=== PATIENT | male | born 1950 ===

== ENCOUNTER 2022-02-18 02:39 | Inpatient (IN) ==
[2022-02-18 04:20] LABS: Basophils % 0.1 % (0.0-0.8); Eosinophils # 0.2 10*3/uL (0.0-0.87); Eosinophils % 0.9 % (0.00-10.9); Hematocrit 24.8 VOL% (42.0-52.0); Hemoglobin 7.5 GM/DL (14.0-18.0); Immature Granulocytes % 0.7 %; Immature Granulocytes Absolute 0.14 #; Lymphocytes # 1.1 10*3/uL (1.4-4.0); Lymphocytes % 5.6 % (21.2-54.2); Mean Corpuscular HGB Conc 30.2 GM/DL (32-36); Mean Corpuscular Volume 80.8 FL (87-102); Mean Platelet Volume 10.9 FL (9.6-12.0); Monocytes # 0.9 10*3/uL (0.11-0.8); Monocytes % 4.7 % (1.7-12.7); Platelet Count 258 T/CUMM (130-400); Red Blood Count 3.07 MC/CUMM (3.8-5.5); Red Cell Distribution Width 14.6 % (9.3-17.3); White Blood Count 19.1 T/CUMM (4-12)
[2022-02-18 04:28] LABS: RBC,Urine 22 /HPF (0-4)
[2022-02-18 04:30] LABS: Bilirubin,Urine Negative (Negative); Blood, Urine Moderate mg/dL (Negative); Glucose,Urine (UA) Negative (Negative); Ketones,Urine Negative (Negative); Nitrite,Urine Positive (Negative); Protein,Urine 100 mg/dL (Negative); Urine Appearance CLOUDY (Clear); Urine Color Yellow (Yellow); Urine Urobilinogen 0.2 eU/dL (<2.0); Urine pH 7.5 (4.5-8.0)
[2022-02-18 04:41] LABS: Alanine Aminotransferase 10 U/L (16-61); Albumin 3.2 G/DL (3.4-5.0); Alkaline Phosphatase 63 U/L (45-117); Aspartate Amino Transferase 8 U/L (0-37); Bilirubin,Total < 0.39 MG/DL (0.20-1.00); Blood Urea Nitrogen 77 MG/DL (7-18); Calcium 6.5 MG/DL (8.5-10.1); Carbon Dioxide 15 MMOL/L (21-32); Chloride 119 MMOL/L (98-107); Glucose 124 MG/DL (74-106); Osmolality,Calculated 309.8 MOS/KG (273-304); Potassium 4.6 MMOL/L (3.5-5.1); Sodium 144 MMOL/L (136-145); Total Protein 7.1 G/DL (6.4-8.2)
[2022-02-18] MEDS ORDERED: LEVOFLOXACIN INJ 500 MG/100 ML PREMIX IV ONE (04:42)
[2022-02-18] MEDS ORDERED: ALBUTEROL 2.5 MG/3 ML NEB RESP TX PRN (08:42)
[2022-02-18] MEDS ORDERED: DOCUSATE SODIUM 100 MG CAPSULE PO PRN (08:42)
[2022-02-18] MEDS ORDERED: ONDANSETRON 4 MG/2 ML VIAL IV PRN (08:42)
[2022-02-18] MEDS ORDERED: hydrALAZINE 20 MG/1 ML VIAL IV PRN (08:42)
[2022-02-18] MEDS ORDERED: ACETAMINOPHEN 325 MG TABLET PO PRN (08:42)
[2022-02-18] MEDS ORDERED: SODIUM CHLORIDE 0.9% 1,000 ML IV PRN ×2 (09:06→15:48)
[2022-02-18 09:39] LABS: % Iron Saturation 14.5 % (18-50); Ferritin 308.8 ng/mL (26-388)
[2022-02-18] MEDS: PANTOPRAZOLE 40 MG TABLET PO SCH (10:32)
[2022-02-18 11:36] LABS: Basophils % 0.1 % (0.0-0.8); Eosinophils # 0.1 10*3/uL (0.0-0.87); Eosinophils % 0.3 % (0.00-10.9); Hemoglobin 7.1 GM/DL (14.0-18.0); Immature Granulocytes % 0.7 %; Immature Granulocytes Absolute 0.13 #; Lymphocytes # 1.3 10*3/uL (1.4-4.0); Mean Corpuscular HGB Conc 30.9 GM/DL (32-36); Mean Corpuscular Volume 79.9 FL (87-102); Mean Platelet Volume 10.9 FL (9.6-12.0); Monocytes # 1.1 10*3/uL (0.11-0.8); Monocytes % 5.7 % (1.7-12.7); Neutrophils % 86.2 % (38.7-73.9); Platelet Count 248 T/CUMM (130-400); Red Blood Count 2.88 MC/CUMM (3.8-5.5); Red Cell Distribution Width 14.5 % (9.3-17.3); White Blood Count 18.5 T/CUMM (4-12)
[2022-02-18 12:42] LABS: Sedimentation Rate-Westergren 79 MM/HR (0-20)
[2022-02-18] MEDS: SODIUM BICARB INJ 50 MEQ in DEXTROSE 5% NACL 0.45% 1,000 ML IV SCH ×2 (13:11→21:07)
[2022-02-18] MEDS: DUTASTERIDE 0.5 MG CAPSULE PO SCH (15:55)
[2022-02-18 20:10] LABS: Folate 5.26 NG/ML (5.38-24.0); Vitamin B12 411 PG/ML (211-911)
[2022-02-18] MEDS: TAMSULOSIN 0.4 MG CAPSULE PO SCH (21:05)
[2022-02-19] MEDS: SODIUM BICARB INJ 50 MEQ in DEXTROSE 5% NACL 0.45% 1,000 ML IV SCH ×3 (01:15→15:42)
[2022-02-19 04:35] LABS: Arterial Base Excess iSTAT -11 MMOL/L (-2.5-2.5); Arterial Bicarbonate iSTAT 14.6 MMOL/L (20-26); Arterial O2 Saturation iSTAT 95 % (95-100); Arterial PCO2 iSTAT 30 MM HG (35-48); Arterial PO2 iSTAT 84 MM HG (80-95); Arterial Total CO2 iSTAT 16 MMO/L (23-27); Arterial pH iSTAT 7.294 (7.35-7.45)
[2022-02-19 05:45] LABS: Basophils % 0.2 % (0.0-0.8); Eosinophils # 0.3 10*3/uL (0.0-0.87); Eosinophils % 2.3 % (0.00-10.9); Hematocrit 22.8 VOL% (42.0-52.0); Hemoglobin 7.2 GM/DL (14.0-18.0); Immature Granulocytes % 0.6 %; Immature Granulocytes Absolute 0.08 #; Lymphocytes # 1.8 10*3/uL (1.4-4.0); Mean Corpuscular HGB Conc 31.6 GM/DL (32-36); Mean Corpuscular Volume 80.9 FL (87-102); Mean Platelet Volume 11.2 FL (9.6-12.0); Monocytes # 0.9 10*3/uL (0.11-0.8); Monocytes % 7.1 % (1.7-12.7); Neutrophils % 75.8 % (38.7-73.9); Platelet Count 234 T/CUMM (130-400); Red Blood Count 2.82 MC/CUMM (3.8-5.5); White Blood Count 12.8 T/CUMM (4-12)
[2022-02-19 06:28] LABS: Calcium 6.4 MG/DL (8.5-10.1); Potassium 4.4 MMOL/L (3.5-5.1); Risk Ratio 2.69; Thyroid Stimulating Hormone 2.13 uIU/ml (0.358-3.74); VLDL Cholesterol 8.8 MG/DL
[2022-02-19 06:40] LABS: Phosphorous 4.6 MG/DL (2.5-4.9); Total Protein 6.1 G/DL (6.4-8.2); Uric Acid 8.9 MG/DL (3.5-7.2)
[2022-02-19] MEDS: DUTASTERIDE 0.5 MG CAPSULE PO SCH (10:03)
[2022-02-19] MEDS: PANTOPRAZOLE 40 MG TABLET PO SCH (10:03)
[2022-02-19 10:10] LABS: Protein/Creatinine Ratio,Urine 0.8 RATIO
[2022-02-19] MEDS ORDERED: SODIUM CHLORIDE 0.9% 1,000 ML IV PRN (12:58)
[2022-02-19 19:17] LABS: Hematocrit 29.8 VOL% (42.0-52.0)
[2022-02-19 19:19] LABS: Hemoglobin 9.2 GM/DL (14.0-18.0)
[2022-02-19] MEDS: TAMSULOSIN 0.4 MG CAPSULE PO SCH (20:48)
[2022-02-20] MEDS: SODIUM BICARB INJ 50 MEQ in DEXTROSE 5% NACL 0.45% 1,000 ML IV SCH ×2 (03:54→16:04)
[2022-02-20 05:37] LABS: Basophils % 0.1 % (0.0-0.8); Eosinophils # 0.4 10*3/uL (0.0-0.87); Eosinophils % 2.8 % (0.00-10.9); Hematocrit 26.9 VOL% (42.0-52.0); Hemoglobin 8.5 GM/DL (14.0-18.0); Immature Granulocytes % 0.5 %; Immature Granulocytes Absolute 0.07 #; Lymphocytes # 1.6 10*3/uL (1.4-4.0); Lymphocytes % 11.6 % (21.2-54.2); Mean Corpuscular HGB Conc 31.6 GM/DL (32-36); Mean Platelet Volume 10.9 FL (9.6-12.0); Monocytes # 1.1 10*3/uL (0.11-0.8); Monocytes % 8.2 % (1.7-12.7); Neutrophils % 76.8 % (38.7-73.9); Platelet Count 236 T/CUMM (130-400); Red Blood Count 3.28 MC/CUMM (3.8-5.5); Red Cell Distribution Width 15.4 % (9.3-17.3); White Blood Count 13.9 T/CUMM (4-12)
[2022-02-20 06:02] LABS: Calcium 6.1 MG/DL (8.5-10.1); Potassium 4.3 MMOL/L (3.5-5.1)
[2022-02-20] MEDS: LEVOFLOXACIN INJ 500 MG/100 ML PREMIX IV SCH (08:28)
[2022-02-20] MEDS: DUTASTERIDE 0.5 MG CAPSULE PO SCH (08:28)
[2022-02-20] MEDS: PANTOPRAZOLE 40 MG TABLET PO SCH (08:28)
[2022-02-20] MEDS: BACITRACIN OINT 0.9 GM PACK TOP SCH ×2 (09:07→20:39)
[2022-02-20] MEDS: FERRIC GLUCONATE COMPLEX 125 MG in SODIUM CHLORIDE 0.9% 100 ML IV SCH (09:09)
[2022-02-20] MEDS: SODIUM BICARBONATE 650 MG TABLET PO SCH ×2 (09:09→20:39)
[2022-02-20] MEDS: carvediloL 12.5 MG TABLET PO SCH ×2 (09:10→16:04)
[2022-02-20] MEDS ORDERED: EPOETIN ALFA-EPBX 10,000 UNIT/ML VIAL SUBCUT ONE (11:00)
[2022-02-20] MEDS: TAMSULOSIN 0.4 MG CAPSULE PO SCH (20:39)
[2022-02-21] MEDS: SODIUM BICARB INJ 50 MEQ in DEXTROSE 5% NACL 0.45% 1,000 ML IV SCH ×2 (05:12→18:30)
[2022-02-21 07:10] LABS: Basophils % 0.2 % (0.0-0.8); Eosinophils # 0.4 10*3/uL (0.0-0.87); Eosinophils % 3.1 % (0.00-10.9); Hematocrit 23.5 VOL% (42.0-52.0); Hemoglobin 7.6 GM/DL (14.0-18.0); Immature Granulocytes % 0.5 %; Immature Granulocytes Absolute 0.06 #; Lymphocytes # 1.8 10*3/uL (1.4-4.0); Lymphocytes % 14.1 % (21.2-54.2); Mean Corpuscular HGB Conc 32.3 GM/DL (32-36); Mean Corpuscular Volume 81.6 FL (87-102); Mean Platelet Volume 11.3 FL (9.6-12.0); Monocytes # 1.1 10*3/uL (0.11-0.8); Monocytes % 8.6 % (1.7-12.7); Neutrophils % 73.5 % (38.7-73.9); Platelet Count 216 T/CUMM (130-400); Red Blood Count 2.88 MC/CUMM (3.8-5.5); Red Cell Distribution Width 15.5 % (9.3-17.3)
[2022-02-21 07:42] LABS: Calcium 5.9 MG/DL (8.5-10.1); Osmolality,Calculated 305.8 MOS/KG (273-304); Potassium 4.2 MMOL/L (3.5-5.1)
[2022-02-21] MEDS: hydrALAZINE 25 MG TABLET PO SCH ×2 (08:28→20:25)
[2022-02-21] MEDS: carvediloL 12.5 MG TABLET PO SCH ×2 (08:28→16:30)
[2022-02-21] MEDS ORDERED: calcitrioL 0.25 MCG CAPSULE PO SCH (09:00)
[2022-02-21 09:30] LABS: Random Urine Protein (Bench) 50 MG/DL (<11.9)
[2022-02-21 09:30] LABS: Immunoglobulin A (Chem) 169 MG/DL (70-400); Immunoglobulin G (Chem) 1190 MG/DL (700-1600); Immunoglobulin M (Chem) 105 MG/DL (40-230); Total Protein (Chem) 6.1 G/DL (6.4-8.3)
[2022-02-21 10:36] LABS: Hemoglobin A1 (Alkaline) 64.8 % (96.5-98.5); Hemoglobin A2 (Alkaline) 3.1 % (1.5-3.5); Hemoglobin S (Alkaline) 32.1 %
[2022-02-21 11:11] LABS: Albumin (SPE) 3.5 G/DL (3.2-5.3); Albumin (SPE) Rel % 57.6 %; Alpha 1 (SPE) 0.1 G/DL (0.1-0.4); Alpha 1 (SPE) Rel % 2.2 %; Alpha 2 (SPE) 0.6 G/DL (0.4-1.0); Alpha 2 (SPE) Rel % 10.3 %; Beta (SPE) 0.5 G/DL (0.5-1.1); Beta (SPE) Rel % 7.4 %; Gamma (SPE) 1.4 G/DL (0.7-1.7); Gamma (SPE) Rel % 22.5 %
[2022-02-21] MEDS: FERRIC GLUCONATE COMPLEX 125 MG in SODIUM CHLORIDE 0.9% 100 ML IV SCH (12:06)
[2022-02-21] MEDS: PANTOPRAZOLE 40 MG TABLET PO SCH (14:57)
[2022-02-21] MEDS: SODIUM BICARBONATE 650 MG TABLET PO SCH ×2 (14:57→20:25)
[2022-02-21] MEDS: DUTASTERIDE 0.5 MG CAPSULE PO SCH (14:57)
[2022-02-21] MEDS: BACITRACIN OINT 0.9 GM PACK TOP SCH ×2 (14:57→20:25)
[2022-02-21] MEDS: TAMSULOSIN 0.4 MG CAPSULE PO SCH (20:25)
[2022-02-22] MEDS: SODIUM BICARB INJ 50 MEQ in DEXTROSE 5% NACL 0.45% 1,000 ML IV SCH ×4 (01:16→21:16)
[2022-02-22 05:23] LABS: Basophils % 0.2 % (0.0-0.8); Eosinophils # 0.5 10*3/uL (0.0-0.87); Eosinophils % 3.4 % (0.00-10.9); Hemoglobin 7.8 GM/DL (14.0-18.0); Immature Granulocytes % 0.8 %; Lymphocytes # 1.8 10*3/uL (1.4-4.0); Lymphocytes % 13.9 % (21.2-54.2); Mean Corpuscular HGB Conc 32.5 GM/DL (32-36); Mean Corpuscular Volume 81.1 FL (87-102); Mean Platelet Volume 10.7 FL (9.6-12.0); Monocytes # 1.1 10*3/uL (0.11-0.8); Monocytes % 8.3 % (1.7-12.7); Neutrophils % 73.4 % (38.7-73.9); Platelet Count 214 T/CUMM (130-400); Red Blood Count 2.96 MC/CUMM (3.8-5.5); Red Cell Distribution Width 15.4 % (9.3-17.3); White Blood Count 13.1 T/CUMM (4-12)
[2022-02-22 05:40] LABS: Potassium 4.2 MMOL/L (3.5-5.1)
[2022-02-22 05:42] LABS: Calcium 5.8 MG/DL (8.5-10.1)
[2022-02-22] MEDS ORDERED: CALCIUM GLUCONATE RIDER 2,000 MG/100 ML PREMIX IV ONE (08:30)
[2022-02-22] MEDS: DUTASTERIDE 0.5 MG CAPSULE PO SCH (09:41)
[2022-02-22] MEDS: BACITRACIN OINT 0.9 GM PACK TOP SCH ×2 (09:41→21:15)
[2022-02-22] MEDS: carvediloL 12.5 MG TABLET PO SCH ×2 (09:42→17:23)
[2022-02-22] MEDS: SODIUM BICARBONATE 650 MG TABLET PO SCH ×2 (09:42→21:15)
[2022-02-22] MEDS: PANTOPRAZOLE 40 MG TABLET PO SCH (09:43)
[2022-02-22] MEDS: LEVOFLOXACIN INJ 500 MG/100 ML PREMIX IV SCH (10:25)
[2022-02-22] MEDS: FERRIC GLUCONATE COMPLEX 125 MG in SODIUM CHLORIDE 0.9% 100 ML IV SCH (11:28)
[2022-02-22] MEDS ORDERED: MAGNESIUM SULF RIDER 4 GM/100 ML PREMIX IV ONE (12:00)
[2022-02-22] MEDS ORDERED: ERGOCALCIFEROL 50,000 UNIT CAPSULE PO SCH (12:00)
[2022-02-22 13:22] LABS: Kappa Free Light Chain 14.4 mg/dL; Lambda Free Light Chain 10.1 mg/dL
[2022-02-22 19:43] LABS: Antinuclear Ab, S 0.2 U
[2022-02-22] MEDS: TAMSULOSIN 0.4 MG CAPSULE PO SCH (21:15)
[2022-02-23 04:47] LABS: Basophils % 0.2 % (0.0-0.8); Eosinophils # 0.4 10*3/uL (0.0-0.87); Hematocrit 23.8 VOL% (42.0-52.0); Hemoglobin 7.6 GM/DL (14.0-18.0); Immature Granulocytes Absolute 0.13 #; Lymphocytes # 1.5 10*3/uL (1.4-4.0); Lymphocytes % 11.4 % (21.2-54.2); Mean Corpuscular HGB Conc 31.9 GM/DL (32-36); Mean Corpuscular Volume 82.9 FL (87-102); Mean Platelet Volume 10.2 FL (9.6-12.0); Monocytes # 1.2 10*3/uL (0.11-0.8); Monocytes % 8.8 % (1.7-12.7); Neutrophils % 75.6 % (38.7-73.9); Platelet Count 208 T/CUMM (130-400); Red Blood Count 2.87 MC/CUMM (3.8-5.5); Red Cell Distribution Width 15.6 % (9.3-17.3); White Blood Count 13.3 T/CUMM (4-12)
[2022-02-23 05:16] LABS: Alanine Aminotransferase < 9 U/L (16-61); Albumin 2.5 G/DL (3.4-5.0); Alkaline Phosphatase 47 U/L (45-117); Aspartate Amino Transferase 9 U/L (0-37); Bilirubin,Total < 0.39 MG/DL (0.20-1.00); Blood Urea Nitrogen 64 MG/DL (7-18); Calcium 6.2 MG/DL (8.5-10.1); Carbon Dioxide 24 MMOL/L (21-32); Chloride 111 MMOL/L (98-107); Glucose 104 MG/DL (74-106); Potassium 4.2 MMOL/L (3.5-5.1); Sodium 143 MMOL/L (136-145); Total Protein 5.8 G/DL (6.4-8.2)
[2022-02-23] MEDS: carvediloL 12.5 MG TABLET PO SCH ×2 (08:10→16:36)
[2022-02-23] MEDS: DUTASTERIDE 0.5 MG CAPSULE PO SCH (08:10)
[2022-02-23] MEDS: calcitrioL 0.25 MCG CAPSULE PO SCH (08:12)
[2022-02-23] MEDS: BACITRACIN OINT 0.9 GM PACK TOP SCH ×2 (08:12→21:13)
[2022-02-23] MEDS: PANTOPRAZOLE 40 MG TABLET PO SCH (08:12)
[2022-02-23] MEDS: SODIUM BICARBONATE 650 MG TABLET PO SCH ×2 (08:12→21:13)
[2022-02-23] MEDS: CEFUROXIME 500 MG TABLET PO SCH ×2 (08:32→21:13)
[2022-02-23] MEDS: TAMSULOSIN 0.4 MG CAPSULE PO SCH (21:13)
[2022-02-24 06:05] LABS: Basophils % 0.2 % (0.0-0.8); Eosinophils # 0.4 10*3/uL (0.0-0.87); Hematocrit 24.6 VOL% (42.0-52.0); Hemoglobin 7.9 GM/DL (14.0-18.0); Immature Granulocytes % 1.1 %; Immature Granulocytes Absolute 0.14 #; Lymphocytes # 1.9 10*3/uL (1.4-4.0); Lymphocytes % 14.4 % (21.2-54.2); Mean Corpuscular HGB Conc 32.1 GM/DL (32-36); Mean Corpuscular Volume 82.6 FL (87-102); Mean Platelet Volume 11.1 FL (9.6-12.0); Monocytes # 1.1 10*3/uL (0.11-0.8); Monocytes % 8.6 % (1.7-12.7); Neutrophils % 72.7 % (38.7-73.9); Platelet Count 236 T/CUMM (130-400); Red Blood Count 2.98 MC/CUMM (3.8-5.5); Red Cell Distribution Width 15.7 % (9.3-17.3)
[2022-02-24 06:40] LABS: Alanine Aminotransferase < 6 U/L (16-61); Albumin 2.6 G/DL (3.4-5.0); Alkaline Phosphatase 47 U/L (45-117); Aspartate Amino Transferase 9 U/L (0-37); Bilirubin,Total < 0.39 MG/DL (0.20-1.00); Blood Urea Nitrogen 69 MG/DL (7-18); Calcium 6.4 MG/DL (8.5-10.1); Carbon Dioxide 23 MMOL/L (21-32); Chloride 109 MMOL/L (98-107); Glucose 85 MG/DL (74-106); Osmolality,Calculated 299.3 MOS/KG (273-304); Potassium 4.3 MMOL/L (3.5-5.1); Sodium 141 MMOL/L (136-145); Total Protein 5.9 G/DL (6.4-8.2)
[2022-02-24] MEDS ORDERED: CEFUROXIME 500 MG TABLET PO SCH (09:00)
[2022-02-24] MEDS: DUTASTERIDE 0.5 MG CAPSULE PO SCH (09:36)
[2022-02-24] MEDS: SODIUM BICARBONATE 650 MG TABLET PO SCH (09:36)
[2022-02-24] MEDS: BACITRACIN OINT 0.9 GM PACK TOP SCH (09:36)
[2022-02-24] MEDS: carvediloL 12.5 MG TABLET PO SCH (09:36)
[2022-02-24] MEDS: PANTOPRAZOLE 40 MG TABLET PO SCH (09:36)
[2022-02-24] MEDS: calcitrioL 0.25 MCG CAPSULE PO SCH (09:36)
[2022-02-24 11:11] VITALS: BP 126/60
== END 2022-02-24 12:05 | disposition home or self-care (01) | DRG 699 ==
LOC: EDBD → EDUNIT# → N.ED 02:39 → N.EDINP 08:42 → SUATTDRO 08:42 → N.EDINP 10:40 → N.3E 12:06
PROVIDERS: ADMIT Internal Medicine; ATTEND Family Medicine

== ENCOUNTER 2022-03-04 22:09 | Observation (INO) ==
[2022-03-04 23:07] LABS: Basophils % 0.2 % (0.0-0.8); Eosinophils # 0.3 10*3/uL (0.0-0.87); Eosinophils % 2.1 % (0.00-10.9); Hematocrit 25.6 VOL% (42.0-52.0); Hemoglobin 7.9 GM/DL (14.0-18.0); Immature Granulocytes % 0.4 %; Immature Granulocytes Absolute 0.07 #; Lymphocytes # 1.5 10*3/uL (1.4-4.0); Lymphocytes % 9.3 % (21.2-54.2); Mean Corpuscular HGB Conc 30.9 GM/DL (32-36); Mean Corpuscular Volume 82.8 FL (87-102); Mean Platelet Volume 10.7 FL (9.6-12.0); Monocytes # 1.2 10*3/uL (0.11-0.8); Monocytes % 7.6 % (1.7-12.7); Neutrophils % 80.4 % (38.7-73.9); Platelet Count 267 T/CUMM (130-400); Red Blood Count 3.09 MC/CUMM (3.8-5.5); Red Cell Distribution Width 15.4 % (9.3-17.3); White Blood Count 15.7 T/CUMM (4-12)
[2022-03-04 23:22] LABS: RBC,Urine 90373 /HPF (0-4)
[2022-03-04 23:30] LABS: Bilirubin,Urine Negative (Negative); Blood, Urine Large mg/dL (Negative); Glucose,Urine (UA) Negative (Negative); Ketones,Urine Negative (Negative); Nitrite,Urine Negative (Negative); Protein,Urine >=300 mg/dL (Negative); Urine Appearance Clear (Clear); Urine Color Red (Yellow); Urine Urobilinogen 0.2 eU/dL (<2.0)
[2022-03-04 23:31] LABS: Calcium 7.2 MG/DL (8.5-10.1); Osmolality,Calculated 302.3 MOS/KG (273-304); Potassium 4.8 MMOL/L (3.5-5.1)
[2022-03-05] MEDS ORDERED: cefTRIAXone 1,000 MG in SODIUM CHLORIDE 0.9% 100 ML IV STA (00:46)
[2022-03-05] MEDS ORDERED: hydrALAZINE 20 MG/1 ML VIAL IV PRN (01:53)
[2022-03-05] MEDS ORDERED: ACETAMINOPHEN 325 MG TABLET PO PRN (01:53)
[2022-03-05] MEDS ORDERED: MORPHINE 2 MG/1 ML SYRINGE IV PRN (01:53)
[2022-03-05] MEDS ORDERED: ONDANSETRON 4 MG/2 ML VIAL IV PRN (01:53)
[2022-03-05 06:09] LABS: Basophils % 0.1 % (0.0-0.8); Eosinophils # 0.3 10*3/uL (0.0-0.87); Hematocrit 24.5 VOL% (42.0-52.0); Hemoglobin 7.5 GM/DL (14.0-18.0); Immature Granulocytes % 0.6 %; Immature Granulocytes Absolute 0.08 #; Lymphocytes # 1.3 10*3/uL (1.4-4.0); Lymphocytes % 9.3 % (21.2-54.2); Mean Corpuscular HGB Conc 30.6 GM/DL (32-36); Mean Corpuscular Volume 83.1 FL (87-102); Mean Platelet Volume 11.1 FL (9.6-12.0); Monocytes # 1.1 10*3/uL (0.11-0.8); Monocytes % 7.4 % (1.7-12.7); Neutrophils % 80.6 % (38.7-73.9); Platelet Count 250 T/CUMM (130-400); Red Blood Count 2.95 MC/CUMM (3.8-5.5); Red Cell Distribution Width 15.3 % (9.3-17.3); White Blood Count 14.2 T/CUMM (4-12)
[2022-03-05 06:24] LABS: Potassium 5.1 MMOL/L (3.5-5.1)
[2022-03-05] MEDS: PANTOPRAZOLE 40 MG TABLET PO SCH (09:13)
[2022-03-05] MEDS: calcitrioL 0.25 MCG CAPSULE PO SCH (09:13)
[2022-03-05] MEDS: carvediloL 12.5 MG TABLET PO SCH ×2 (09:13→22:40)
[2022-03-05 09:16] LABS: % Iron Saturation 10.2 % (18-50)
[2022-03-05] MEDS: DUTASTERIDE 0.5 MG CAPSULE PO SCH (09:19)
[2022-03-05 09:27] LABS: Folate 5.22 NG/ML (5.38-24.0)
[2022-03-05] MEDS ORDERED: FERRIC GLUCONATE COMPLEX 125 MG in SODIUM CHLORIDE 0.9% 100 ML IV ONE (11:00)
[2022-03-05] MEDS: TAMSULOSIN 0.4 MG CAPSULE PO SCH (22:40)
[2022-03-06 04:53] LABS: Basophils % 0.1 % (0.0-0.8); Eosinophils # 0.4 10*3/uL (0.0-0.87); Hematocrit 20.5 VOL% (42.0-52.0); Immature Granulocytes % 0.4 %; Immature Granulocytes Absolute 0.06 #; Lymphocytes # 1.7 10*3/uL (1.4-4.0); Mean Corpuscular HGB Conc 31.7 GM/DL (32-36); Mean Platelet Volume 10.8 FL (9.6-12.0); Monocytes # 1.1 10*3/uL (0.11-0.8); Monocytes % 8.2 % (1.7-12.7); Neutrophils % 76.3 % (38.7-73.9); Platelet Count 212 T/CUMM (130-400); Red Blood Count 2.47 MC/CUMM (3.8-5.5); White Blood Count 13.7 T/CUMM (4-12)
[2022-03-06 04:54] LABS: Hemoglobin 6.5 GM/DL (14.0-18.0)
[2022-03-06 05:03] LABS: Calcium 6.4 MG/DL (8.5-10.1); Potassium 5.2 MMOL/L (3.5-5.1)
[2022-03-06] MEDS: cefTRIAXone 1,000 MG in SODIUM CHLORIDE 0.9% 100 ML IV SCH (06:17)
[2022-03-06] MEDS ORDERED: SODIUM CHLORIDE 0.9% 1,000 ML IV PRN (07:48)
[2022-03-06] MEDS ORDERED: SODIUM POLYSTYRENE SULFATE 15 GM/60 ML BOTTLE PO ONE (07:50)
[2022-03-06] MEDS: calcitrioL 0.25 MCG CAPSULE PO SCH (09:55)
[2022-03-06] MEDS: FOLIC ACID 1 MG TABLET PO SCH (09:55)
[2022-03-06] MEDS: DUTASTERIDE 0.5 MG CAPSULE PO SCH (09:55)
[2022-03-06] MEDS: FERROUS SULFATE 325 MG TABLET PO SCH (09:55)
[2022-03-06] MEDS: PANTOPRAZOLE 40 MG TABLET PO SCH (09:55)
[2022-03-06] MEDS: carvediloL 12.5 MG TABLET PO SCH ×2 (09:55→22:33)
[2022-03-06] MEDS: SODIUM CHLORIDE 0.45% 1,000 ML IV SCH (09:56)
[2022-03-06] MEDS: TAMSULOSIN 0.4 MG CAPSULE PO SCH (22:33)
[2022-03-07] MEDS: SODIUM CHLORIDE 0.45% 1,000 ML IV SCH ×2 (04:57)
[2022-03-07] MEDS: cefTRIAXone 1,000 MG in SODIUM CHLORIDE 0.9% 100 ML IV SCH (04:59)
[2022-03-07 06:15] LABS: Alanine Aminotransferase < 6 U/L (16-61); Albumin 2.5 G/DL (3.4-5.0); Alkaline Phosphatase 52 U/L (45-117); Aspartate Amino Transferase 5 U/L (0-37); Bilirubin,Total < 0.39 MG/DL (0.20-1.00); Blood Urea Nitrogen 71 MG/DL (7-18); Calcium 6.1 MG/DL (8.5-10.1); Carbon Dioxide 18 MMOL/L (21-32); Chloride 117 MMOL/L (98-107); Glucose 88 MG/DL (74-106); Osmolality,Calculated 307.7 MOS/KG (273-304); Potassium 4.5 MMOL/L (3.5-5.1); Sodium 145 MMOL/L (136-145)
[2022-03-07 06:19] LABS: Basophils % 0.2 % (0.0-0.8); Eosinophils # 0.3 10*3/uL (0.0-0.87); Hematocrit 25.6 VOL% (42.0-52.0); Immature Granulocytes % 0.4 %; Immature Granulocytes Absolute 0.05 #; Lymphocytes # 1.5 10*3/uL (1.4-4.0); Lymphocytes % 13.2 % (21.2-54.2); Mean Corpuscular HGB Conc 31.6 GM/DL (32-36); Mean Corpuscular Volume 83.7 FL (87-102); Mean Platelet Volume 11.1 FL (9.6-12.0); Monocytes # 1.1 10*3/uL (0.11-0.8); Monocytes % 9.6 % (1.7-12.7); Neutrophils % 73.6 % (38.7-73.9); Platelet Count 209 T/CUMM (130-400); Red Cell Distribution Width 15.3 % (9.3-17.3); White Blood Count 11.3 T/CUMM (4-12)
[2022-03-07 06:21] LABS: Red Blood Count 3.06 MC/CUMM (3.8-5.5)
[2022-03-07 06:22] LABS: Hemoglobin 8.1 GM/DL (14.0-18.0)
[2022-03-07] MEDS: FERROUS SULFATE 325 MG TABLET PO SCH (08:38)
[2022-03-07] MEDS: calcitrioL 0.25 MCG CAPSULE PO SCH (08:38)
[2022-03-07] MEDS: carvediloL 12.5 MG TABLET PO SCH ×2 (08:38→22:27)
[2022-03-07] MEDS: PANTOPRAZOLE 40 MG TABLET PO SCH (08:38)
[2022-03-07] MEDS: DUTASTERIDE 0.5 MG CAPSULE PO SCH (08:38)
[2022-03-07] MEDS: FOLIC ACID 1 MG TABLET PO SCH (08:38)
[2022-03-07] MEDS: TAMSULOSIN 0.4 MG CAPSULE PO SCH (22:27)
[2022-03-08] MEDS: cefTRIAXone 1,000 MG in SODIUM CHLORIDE 0.9% 100 ML IV SCH (02:39)
[2022-03-08 07:31] LABS: Basophils % 0.1 % (0.0-0.8); Eosinophils # 0.3 10*3/uL (0.0-0.87); Eosinophils % 2.9 % (0.00-10.9); Immature Granulocytes % 0.5 %; Immature Granulocytes Absolute 0.05 #; Lymphocytes # 1.7 10*3/uL (1.4-4.0); Lymphocytes % 16.1 % (21.2-54.2); Mean Corpuscular HGB Conc 30.8 GM/DL (32-36); Mean Platelet Volume 10.2 FL (9.6-12.0); Monocytes # 0.9 10*3/uL (0.11-0.8); Monocytes % 8.9 % (1.7-12.7); Neutrophils % 71.5 % (38.7-73.9); Platelet Count 202 T/CUMM (130-400); Red Blood Count 3.06 MC/CUMM (3.8-5.5); Red Cell Distribution Width 15.5 % (9.3-17.3); White Blood Count 10.3 T/CUMM (4-12)
[2022-03-08 07:59] LABS: Calcium 6.5 MG/DL (8.5-10.1); Osmolality,Calculated 304.8 MOS/KG (273-304); Potassium 4.4 MMOL/L (3.5-5.1)
[2022-03-08 08:14] VITALS: BP 151/72
[2022-03-08] MEDS: FOLIC ACID 1 MG TABLET PO SCH (09:42)
[2022-03-08] MEDS: carvediloL 12.5 MG TABLET PO SCH (09:42)
[2022-03-08] MEDS: calcitrioL 0.25 MCG CAPSULE PO SCH (09:42)
[2022-03-08] MEDS: DUTASTERIDE 0.5 MG CAPSULE PO SCH (09:42)
[2022-03-08] MEDS: FERROUS SULFATE 325 MG TABLET PO SCH (09:42)
[2022-03-08] MEDS: PANTOPRAZOLE 40 MG TABLET PO SCH (09:42)
== END 2022-03-08 12:30 | disposition home or self-care (01) ==
LOC: N.EDINP 22:09 → N.ED 22:09 → SUATTDRO 03-05 01:53 → N.EDINP 03-05 03:06 → N.TELES 03-05 03:09
PROVIDERS: ADMIT Internal Medicine; ATTEND Internal Medicine